=== PATIENT | female | born 1995 | race Caucasian/White ===

== ENCOUNTER 2020-11-02 22:38 | Emergency (ER) | payer SELFPAY ==
[~2020-11-02] VITALS: Ht 157.5 cm; Wt 97.5 kg
[2020-11-02 22:42] VITALS: BP 126/70
--- NOTE | 2020-11-02 22:42 | NUR ---
TO BED AMBULATORY
--- NOTE | 2020-11-02 22:56 | NUR ---
25 YR OLD FEMALE PRESENTED TO THE ER WITH CC OF ABD PAIN. PT IS AOX4. PT STATES 6/10 NON-RADIATING SHARP ABD PAIN THAT STARTED 3 DAYS AGO. PT STATES NAUSEA, VOMITING, AND DIARRHEA FOR 1 DAY. PT DENIES OTHER MEDICAL COMPLAINTS. BED LOCKED IN LOWEST POSITION WITH 1 SIDE RAIL UP. HISTORY- NONE ALLERGIES- NONE
--- NOTE | 2020-11-02 23:10 | NUR ---
Dr. Morel examining patient.
[2020-11-02] MEDS ORDERED: FAMOTIDINE 20 MG TAB PO ONE (23:30)
[2020-11-02] MEDS ORDERED: ALUMINUM HYD/MAG/SIMETHICONE 30 ML UDC PO ONE (23:30)
--- NOTE | 2020-11-02 23:37 | NUR ---
LAB AT [facility]. URINE SAMPLE COLLECTED AND HANDED TO LAB.
[2020-11-02 23:49] LABS: BASOPHILS % (AUTO) 0.3 % (0.0-2.0); EOSINOPHILS # (AUTO) 0.2 K/uL (0-0.4); EOSINOPHILS % (AUTO) 2.9 % (0.0-4.0); HEMATOCRIT 35.8 % (36-48); HEMOGLOBIN 11.6 g/dL (12.0-16.0); LYMPHOCYTES # (AUTO) 1.7 K/uL (2.5-16.5); LYMPHOCYTES % (AUTO) 25.3 % (20.5-51.1); MEAN CORPUSCULAR HEMOGLOBIN 26 pg (27-31); MEAN CORPUSCULAR HGB CONC 32 g/dL (33-37); MEAN CORPUSCULAR VOLUME 81.4 fL (80-94); MONOCYTES # (AUTO) 0.7 K/uL (0.8-1.0); MONOCYTES % (AUTO) 9.6 % (1.7-9.3); NEUTROPHILS # (AUTO) 4.2 K/uL (1.8-7.7); NEUTROPHILS % (AUTO) 61.9 % (42.2-75.2); PLATELET COUNT (AUTO) 307 K/uL (140-450); RED CELL DISTRIBUTION WIDTH 14.9 % (11.6-13.7); WHITE BLOOD COUNT (AUTO) 6.8 K/uL (4.8-10.8)
[2020-11-02 23:50] LABS: APPEARANCE,URINE CLEAR (CLEAR); BILIRUBIN,URINE NEGATIVE (NEGATIVE); BLOOD, URINE NEGATIVE (NEGATIVE); COLOR,URINE YELLOW (YELLOW); LEUKOCYTE ESTERASE ,URINE NEGATIVE (NEGATIVE); NITRITE, URINE NEGATIVE (NEGATIVE); UGLUCOSE NEGATIVE (NEGATIVE)
[2020-11-03 00:09] LABS: ALBUMIN 3.6 g/dL (3.4-5.0); ANION GAP 11.8 (8-16); CARBON DIOXIDE 26.8 mmol/L (21-32); CREATININE 0.8 mg/dL (0.6-1.3); POTASSIUM 3.6 mmol/L (3.5-5.1); TOTAL BILIRUBIN 0.3 mg/dL (0.0-1.0)
[2020-11-03 01:00] VITALS: BP 120/84
--- NOTE | 2020-11-03 01:01 | NUR ---
PT FOUND AWAKE SITTING ON BED. PT STATES RELIEF FROM ABD PAIN. PT STATED ABD PAIN IS CURRENTLY 3/10. PT DENIES OTHER MEDICAL COMPLAINTS. BED LOCKED IN LOWEST POSITION WITH 1 SIDE RAIL UP.
--- NOTE | 2020-11-03 01:50 | NUR ---
Patient discharged with v/s stable. Written and verbal after care instructions given and explained. Patient verbalized understanding. Ambulatory with steady gait. All questions addressed prior to discharge. EXCUSE FROM WORK NOTE GIVEN. PT STABLE UPON DISCHARGE. Advised to follow up with PMD.
== END 2020-11-03 01:50 | disposition home or self-care (01) ==
LOC: MED 22:38
DX: K76.0 Fatty (change of) liver, not elsewhere classified (principal); R10.13 Epigastric pain
CPT/HCPCS: 36415; 76705; 80053; 81003; 81025; 83690; 85025; 99284

== ENCOUNTER 2021-01-15 10:34 | Emergency (ER) | payer MEDICAID ==
[~2021-01-15] VITALS: Ht 157.5 cm; Wt 99.8 kg
[2021-01-15 10:39] VITALS: BP 131/78
--- NOTE | 2021-01-15 10:45 | NUR ---
PT AMBULATED TO BED 12.
--- NOTE | 2021-01-15 10:50 | NUR ---
25 y/o F BIB self from home with c/c vaginal bleeding/cramping x 4 days. Patient states possible miscarriage; states on 01/12 she began having vaginal bleeding and states a large clot about "two quarter sizes" came out. Patient reports she never performed a test to confirm + . Pateint reports irregular menstrual cycles and states LMP 12/16/20. Patient states abdominal pain, 7/10, cramping/intermittent, radiating to lower back. Patient also states N/V x 1 episode. Denies any vaginal discharge, urinary symptoms, SOB, CP, dizziness, headache. Pt placed into a gown, blood pressure cuff and pulse oximetry. Bed locked in lowest position, side rails x 1, call light in reach. PMH/Sx/Meds: Denies NKA
--- NOTE | 2021-01-15 11:10 | NUR ---
Dr. Carney is evaluating patient at bedside.
--- NOTE | 2021-01-15 11:29 | NUR ---
Lab at bedside
[2021-01-15 11:41] LABS: BASOPHILS # (AUTO) 0.4 K/uL (0.00-0.22); BASOPHILS % (AUTO) 4.3 % (0.0-2.0); EOSINOPHILS # (AUTO) 0.3 K/uL (0-0.4); EOSINOPHILS % (AUTO) 3.1 % (0.0-4.0); HEMATOCRIT 35.6 % (36-48); HEMOGLOBIN 11.7 g/dL (12.0-16.0); LYMPHOCYTES # (AUTO) 1.2 K/uL (2.5-16.5); MEAN CORPUSCULAR HEMOGLOBIN 26 pg (27-31); MEAN CORPUSCULAR HGB CONC 33 g/dL (33-37); MEAN CORPUSCULAR VOLUME 79.6 fL (80-94); MONOCYTES # (AUTO) 0.3 K/uL (0.8-1.0); MONOCYTES % (AUTO) 3.3 % (1.7-9.3); NEUTROPHILS # (AUTO) 6.5 K/uL (1.8-7.7); NEUTROPHILS % (AUTO) 75.3 % (42.2-75.2); PLATELET COUNT (AUTO) 321 K/uL (140-450); RED BLOOD CELL COUNT(AUTO) 4.48 MIL/uL (4.20-5.40); RED CELL DISTRIBUTION WIDTH 14.6 % (11.6-13.7); WHITE BLOOD COUNT (AUTO) 8.6 K/uL (4.8-10.8)
--- NOTE | 2021-01-15 11:45 | NUR ---
Patient sitting upright in bed. VSS. Respirations even/unlabored. Bed locked in lowest position, side rails x 1.
[2021-01-15 11:53] LABS: ALBUMIN 3.7 g/dL (3.4-5.0); ANION GAP 9.3 (8-16); CARBON DIOXIDE 27.6 mmol/L (21-32); CREATININE 0.7 mg/dL (0.6-1.3); POTASSIUM 3.9 mmol/L (3.5-5.1); TOTAL BILIRUBIN 0.3 mg/dL (0.0-1.0)
--- NOTE | 2021-01-15 11:59 | NUR ---
US tech at bedside
[2021-01-15 13:04] VITALS: BP 131/78
--- NOTE | 2021-01-15 13:04 | NUR ---
Patient discharged with v/s stable. Written and verbal after care instructions given and explained. Patient verbalized understanding. Ambulatory with steady gait. All questions addressed prior to discharge. Advised to follow up with PMD.
== END 2021-01-15 13:04 | disposition home or self-care (01) ==
LOC: MED 10:34
DX: N93.8 Other specified abnormal uterine and vaginal bleeding (principal); R10.30 Lower abdominal pain, unspecified; J45.909 Unspecified asthma, uncomplicated
CPT/HCPCS: 36415; 76856; 80053; 81002; 81025; 84702; 85025; 99284

== ENCOUNTER 2024-02-18 15:41 | Emergency (ER) | payer MEDICAID ==
[~2024-02-18] VITALS: Ht 157.5 cm; Wt 106.1 kg
[2024-02-18 15:54] VITALS: BP 136/84; PULSE 109; RESP 19; TEMP 97.8; O2SAT 98
[2024-02-18] MEDS: ACETAMINOPHEN EXTRA STRENGTH 500 MG TAB PO ONE (16:27)
[2024-02-18 16:30] VITALS: O2SAT 98
[2024-02-18 16:46] LABS: BASOPHILS % (AUTO) 0.2 % (0.0-2.0); EOSINOPHILS # (AUTO) 0.7 K/uL (0-0.4); EOSINOPHILS % (AUTO) 6.2 % (0.0-4.0); HEMATOCRIT 35.5 % (36-48); HEMOGLOBIN 11.4 g/dL (12.0-16.0); LYMPHOCYTES # (AUTO) 1.8 K/uL (2.5-16.5); LYMPHOCYTES % (AUTO) 16.2 % (20.5-51.1); MEAN CORPUSCULAR HEMOGLOBIN 25 pg (27-31); MEAN CORPUSCULAR HGB CONC 32 g/dL (33-37); MEAN CORPUSCULAR VOLUME 78.2 fL (80-94); MONOCYTES # (AUTO) 0.5 K/uL (0.8-1.0); MONOCYTES % (AUTO) 4.8 % (1.7-9.3); NEUTROPHILS % (AUTO) 72.6 % (42.2-75.2); PLATELET COUNT (AUTO) 316 K/uL (140-450); RED BLOOD CELL COUNT(AUTO) 4.54 MIL/uL (4.20-5.40); RED CELL DISTRIBUTION WIDTH 17.2 % (11.6-13.7)
[2024-02-18 16:53] LABS: APPEARANCE,URINE CLEAR (CLEAR); BILIRUBIN,URINE NEGATIVE (NEGATIVE); BLOOD, URINE NEGATIVE (NEGATIVE); COLOR,URINE YELLOW (YELLOW); LEUKOCYTE ESTERASE ,URINE NEGATIVE (NEGATIVE); NITRITE, URINE NEGATIVE (NEGATIVE); PROTEIN,URINE NEGATIVE (NEGATIVE); UGLUCOSE NEGATIVE (NEGATIVE); UROBILINOGEN,URINE 0.2 EU/dL (0.2 - 1)
[2024-02-18] MEDS ORDERED: ACET-10509 PO (18:07)
== END 2024-02-18 18:17 | disposition home or self-care (01) ==
LOC: MED 15:41
DX: O26.892 Other specified pregnancy related conditions, second trimester (principal); R10.2 Pelvic and perineal pain; O99.512 Diseases of the respiratory system complicating pregnancy, second trimester; J45.909 Unspecified asthma, uncomplicated; Z3A.14 14 weeks gestation of pregnancy; Z79.1 Long term (current) use of non-steroidal anti-inflammatories (NSAID)
CPT/HCPCS: 36415; 76817; 81003; 84702; 85025; 86900; 86901; 99284